=== PATIENT | female | born 1990 | race Caucasian/White ===

== ENCOUNTER 2016-12-18 16:27 | Observation (INO) ==
[2016-12-18 17:03] LABS: Basophils % 0.1 % (0.0-0.8); Eosinophils % 0.2 % (0.00-10.9); Hematocrit 37.9 VOL% (35.7-47.0); Hemoglobin 12.9 GM/DL (12.0-16.0); Immature Granulocytes % 0.6 %; Immature Granulocytes Absolute 0.09 #; Lymphocytes # 1.2 10*3/uL (1.4-4.0); Lymphocytes % 7.2 % (21.3-54.2); Mean Corpuscular Hemoglobin 30 PG (27-34); Mean Corpuscular Volume 87.7 FL (87-102); Mean Platelet Volume 11.1 FL (9.6-12.0); Monocytes # 0.4 10*3/uL (0.11-0.8); Monocytes % 2.4 % (1.7-12.7); Neutrophils # 14.4 10*3/uL (1.4-7.4); Neutrophils % 89.5 % (38.7-73.9); Platelet Count 269 T/CUMM (130-400); Red Blood Count 4.32 MC/CUMM (3.8-5.5); Red Cell Distribution Width 12.7 % (9.3-17.3)
[2016-12-18] MEDS: LACTATED RINGERS 1,000 ML IV SCH (17:15)
[2016-12-18] MEDS: ONDANSETRON 4 MG/2 ML VIAL IV PRN (17:16)
[2016-12-18] MEDS: MEPERIDINE 50 MG/1 ML VIAL IV SCH ×2 (17:20→23:29)
[2016-12-18] MEDS: LEVOFLOXACIN INJ 500 MG in PREMIX 1 EACH IV SCH (17:30)
[2016-12-18 18:16] LABS: Apearance,Urine Slightly Hazy (Clear); Bilirubin,Urine Negative (Negative); Blood, Urine Large mg/dL (Negative); Glucose,Urine (UA) Negative (Negative); Ketones,Urine 20 mg/dL (Negative); Mucus,Urine Few /LPF (Occasional); Nitrite,Urine Negative (Negative); Protein,Urine 30 MG/DL; RBC,Urine 815 /HPF (0-4); Squamous Epithelial Cell,Urine Occasional /HPF (0-10); Urine Color Yellow (Yellow); Urine Specific Gravity 1.016 (1.001-1.035); Urine Urobilinogen < 2.0 EU/DL (0.2-1.0); WBC,Urine 3 /HPF (0-6)
[2016-12-19] MEDS: LACTATED RINGERS 1,000 ML IV SCH ×3 (00:15→15:45)
[2016-12-19] MEDS: ONDANSETRON 4 MG/2 ML VIAL IV PRN (04:38)
[2016-12-19] MEDS: MEPERIDINE 50 MG/1 ML VIAL IV SCH ×2 (04:38→05:20)
[2016-12-19] MEDS ORDERED: MEPERIDINE 50 MG/1 ML VIAL IV PRN (07:10)
--- NOTE | 2016-12-19 07:58 | Ultrasound Report ---
Renal ultrasound. Indication: Kidney stones. No prior study. The right kidney measures 11.4 x 4.8 x 5.2 cm. The left kidney measures 11.3 x 4.9 x 4.5 cm. Arterial flow is documented to each kidney. No hydronephrosis is seen. No abnormal calcifications or cystic or solid masses are identified. The cortical thickness and parenchymal echogenicity is normal. Impression: No abnormality is seen. PROCEDURE INTERPRETED AT [facility] DEPARTMENT OF RADIOLOGY Final Report Signed by: Dr. Adriana Hopper
--- NOTE | 2016-12-19 08:02 | Ultrasound Report ---
OB ultrasound. First trimester. Indication:: Pelvic pain. No prior study. The uterus measures 15.6 x 8.2 x 10.8 cm and is anteverted. There is an intrauterine gestation. The baby is currently in a breech presentation. The placenta is located posterior. The placenta is low lying and will need to be followed to exclude placenta previa. movement was also seen at real-time. The organ systems were not evaluated on this study. Amniotic fluid volume is normal for this stage of . The cervix is closed with a length of 5.3 cm. There is an embryonic pole present, with cardiac activity seen at real-time. The heart rate is 163 bpm. Abdominal circumference-7.7 cm Femur length-1.2 cm [place]-rump length-7.9 cm. Gestational age by ultrasound, 14 weeks 1 day with an EDC of June 18, 2017. Growth percentile, 41.3%. The maternal ovaries present a normal appearance. Impression: Viable 14 week 1 day IUP. Low-lying placenta. This will need to be followed to exclude placenta previa. PROCEDURE INTERPRETED AT [facility] DEPARTMENT OF RADIOLOGY Final Report Signed by: Dr. Adriana Hopper
[2016-12-19] MEDS: LEVOFLOXACIN INJ 500 MG in PREMIX 1 EACH IV SCH (17:12)
[2016-12-19] MEDS ORDERED: methylPREDNISolone SOD SUC 40 MG/1 ML VIAL IV ONE (18:00)
[2016-12-19] MEDS ORDERED: diphenhydrAMINE CAP 25 MG CAPSULE PO PRN (18:00)
--- NOTE | 2016-12-19 18:01 | OB/GYN History & Physical ---
History of Present Illness Chief complaint: Nephrolithiasis, left-sided pelvic pain History of present illness: Ms. Hennessy is a 26 year old female Patient was admitted to the hospital for observation after being evaluated in the office with left-sided pelvic pain. Patient doubled over in excruciating discomfort. Ultrasound was obtained which demonstrated the possibility of kidney stones in the lower bladder and the distal ureter. No evidence of nephrolithiasis. In the kidney itself. This patient was admitted for IV hydration repeat pelvic ultrasound to be read by the radiologist. Also straight cath urinalysis as well as a CBC and a chemistry panel. Home Medications Medication Instructions Recorded Confirmed Type Vit 108/Iron/Folic AC 1 capsule PO DAILY 12/18/16 12/18/16 History [ One Tablet] Allergies Allergy/AdvReac Type Severity Reaction Status Date / Time Penicillins Allergy ANAPHYLAXIS Verified 01/17/16 00:22 Sulfa (Sulfonamide Allergy ANAPHYLAXIS Verified 01/17/16 00:22 Antibiotics) Medical,Surgical,& Family Hx - Medical History Genitourinary: History of: Kidney Stones - Family History Family History: Reports;: Family Cancer (grandmother), Family Diabetes (uncle grandfather), Family Heart Disease (grandfather), Family Hypertension (mom dad) - Social History Smoking Status: Never smoker Frequency of Alcohol Use: None Type of Drug Use: None 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 - Constitutional Vitals: Vital Signs Temp Pulse Resp BP Pulse Ox 12/19/16 16:00 98.7 F 79 20 114/68 100 12/19/16 11:38 97.7 F 70 20 114/71 98 12/19/16 08:00 97.7 F 87 20 124/69 99 12/19/16 06:00 18 12/19/16 04:00 98.1 F 94 H 18 111/62 100 12/19/16 02:00 18 12/19/16 00:00 99.0 F 84 20 119/65 100 12/18/16 20:00 97.9 F 94 H 20 118/66 100 General appearance: mild distress, severe distress - Head Head exam: Present: normal inspection - Eye Eye exam: Present: conjunctival injection Pupils: Present: CORNELIA - ENT ENT exam: Present: normal exam - Respiratory Respiratory exam: Present: clear to auscultation bilaterally - Breast Breasts: as per HPI Menstruation: as per HPI - Cardiovascular Cardiovascular exam: Present: regular rate and rhythm - GI/Abdominal GI/Abdominal exam: Present: normal bowel sounds (Positive heart tones), guarding (Positive heart tones) - Back Exam Back exam: Present: normal inspection - Psychiatric Psychiatric exam: Present: normal affect - Skin Skin exam: Present: normal color Assessment and Plan (1) Nephrolithiasis Status: Acute Assessment and plan: Received IV fluids, analgesic,'s Levaquin, will be discharged today in follow- up in our office in approximately her next scheduled appointment. Current Visit: Yes Results - Labs CBC & BMP: 12/18/16 16:49
--- NOTE | 2016-12-19 18:05 | Discharge Summary ---
Hospital Course - Hospital Course Hospital Course: Nephrolithiasis with an intrauterine , received IV antibiotics Levaquin , analgesic, and IV fluids. Patient is 100% better pain is described as being as 0 on a 10 point scale. No vaginal bleeding documented heart tones. This patient will be discharged and follow-up our office in her next scheduled appointment Diagnosis - Discharge Diagnosis (1) Nephrolithiasis Status: Acute Discharge Plan - Discharge Medications No Action Vit 108/Iron/Folic AC [ One Tablet] 1 capsule PO DAILY - Follow Up or Referral - Forms/Instructions Exam - Constitutional Vitals: Period Temp Pulse Resp BP Sys/[place] Pulse Ox Last 24 Hr 97.7 F-99.0 F 70-94 18-20 111-124/62-71 98-100 Discharge Results Procedures and tests throughout hospitalization: Pending Orders 12/20/16 04:00 US renal Bilateral IN AM Labs on day of discharge: Labs from last 24 hours 12/18/16 17:40 Urine Color Yellow Urine Appearance Slightly hazy Urine pH 6.0 Ur Specific [place] 1.016 Urine Protein 30 Urine Glucose (UA) Negative Urine Ketones 20 Urine Blood Large Urine Nitrate Negative Urine Bilirubin Negative Urine Urobilinogen < 2.0 H Urine Leukocytes Negative Urine RBC 815 Urine WBC 3 Ur Squamous Epith Cells Occasional Urine Mucus Few Ur Culture Indicated? Not indicated DS: Provider Date of admission: 12/18/16 16:27 Primary care physician: Rey Chanel MD Attending physician on admission: Rey Chanel MD Discharging clinician: Rey Chanel MD
[2016-12-19 21:31] VITALS: BP 120/76
== END 2016-12-19 20:35 | disposition home or self-care (01) ==
LOC: N.OB 16:27 → INTOOBSV 16:27
PROVIDERS: ADMIT Obstetrics & Gynecology; ATTEND Obstetrics & Gynecology

== ENCOUNTER 2017-06-14 06:05 | Inpatient (IN) ==
[2017-06-14] MEDS ORDERED: ONDANSETRON 4 MG/2 ML VIAL IV PRN ×2 (06:44→21:01)
[2017-06-14] MEDS ORDERED: MEPERIDINE 50 MG/1 ML VIAL IV PRN (06:44)
[2017-06-14] MEDS ORDERED: OXYTOCIN/LR 20 UNIT/1,000 ML BAG IV SCH (07:00)
[2017-06-14] MEDS ORDERED: LACTATED RINGERS 1,000 ML IV SCH (07:00)
[2017-06-14 07:09] LABS: Basophils % 0.3 % (0.0-0.8); Eosinophils # 0.2 10*3/uL (0.0-0.87); Eosinophils % 1.5 % (0.00-10.9); Hematocrit 37.2 VOL% (35.7-47.0); Hemoglobin 12.4 GM/DL (12.0-16.0); Immature Granulocytes % 1.4 %; Lymphocytes # 2.4 10*3/uL (1.4-4.0); Lymphocytes % 16.6 % (21.3-54.2); Mean Corpuscular HGB Conc 33.3 GM/DL (32-36); Mean Corpuscular Hemoglobin 29 PG (27-34); Mean Corpuscular Volume 85.5 FL (87-102); Mean Platelet Volume 11.9 FL (9.6-12.0); Monocytes # 0.8 10*3/uL (0.11-0.8); Monocytes % 5.1 % (1.7-12.7); Neutrophils % 75.1 % (38.7-73.9); Platelet Count 272 T/CUMM (130-400); Red Blood Count 4.35 MC/CUMM (3.8-5.5); Red Cell Distribution Width 13.9 % (9.3-17.3); White Blood Count 14.7 T/CUMM (4-12)
[2017-06-14 07:19] LABS: Albumin 2.9 G/DL (3.4-5.0); Bilirubin,Total 0.4 MG/DL (0.2-1.0); Calcium 9.4 MG/DL (8.5-10.1); Osmolality,Calculated 269.8 MOS/KG (273-304); Potassium 4.9 MMOL/L (3.5-5.1); Total Protein 6.7 G/DL (6.4-8.3)
[2017-06-14] MEDS ORDERED: ePHEDrine 50 MG/ML AMP IV PRN (08:58)
[2017-06-14] MEDS ORDERED: CITRIC ACID/SODIUM CITRATE 30 ML UDCUP PO ONE (08:58)
[2017-06-14] MEDS ORDERED: FAMOTIDINE 20 MG/2 ML VIAL IV ONE (08:58)
[2017-06-14] MEDS ORDERED: PROMETHAZINE 25 MG/1 ML VIAL IM ONE (08:58)
[2017-06-14] MEDS ORDERED: fentaNYL 2 MCG/ROPIV 0.2% EPID 150 ML EPIDURAL SCH (08:58)
[2017-06-14] MEDS ORDERED: diphenhydrAMINE 50 MG/1 ML VIAL IV PRN (08:58)
[2017-06-14] MEDS ORDERED: miSOPROStol 200 MCG TABLET ONE (09:13)
[2017-06-14] MEDS ORDERED: LIDOCAINE 1% 50 ML VIAL ONE (09:15)
[2017-06-14 15:38] LABS: Apearance,Urine CLEAR (Clear); Bilirubin,Urine Negative (Negative); Blood, Urine Negative (Negative); Glucose,Urine (UA) Negative (Negative); Ketones,Urine 20 mg/dL (Negative); Nitrite,Urine Negative (Negative); Protein,Urine Negative; RBC,Urine 1 /HPF (0-4); Squamous Epithelial Cell,Urine Occasional /HPF (0-10); Urine Color Straw (Yellow); Urine Specific Gravity 1.005 (1.001-1.035); Urine Urobilinogen < 2.0 EU/DL (0.2-1.0); WBC,Urine <1 /HPF (0-6)
[2017-06-14 21:00] LABS: Cord Arterial Blood HCO3 24.6 MMOL/L
[2017-06-14] MEDS ORDERED: oxyCODONE/ACETAMINOPHEN 5-325 MG TABLET PO PRN ×2 (21:01)
[2017-06-14] MEDS ORDERED: MEASLES/MUMPS/RUBELLA VACCINE 0.5 ML VIAL SUBCUT ONE (21:01)
[2017-06-14] MEDS ORDERED: DIPH/TET/ACEL PERT BOOSTER VACCINE 0.5 ML VIAL IM ONE (21:01)
[2017-06-14] MEDS ORDERED: RHO(D) IMMUNE GLOBULIN 300 MCG SYRINGE IM ONE (21:01)
[2017-06-14] MEDS ORDERED: WITCH HAZEL PADS 100/JAR TOP PRN (21:01)
[2017-06-14] MEDS ORDERED: HYDROCORTISONE 2.5% RECTAL CREAM 30 GM TUBE TOP PRN (21:01)
[2017-06-14] MEDS ORDERED: BENZOCAINE 20%/MENTHOL 0.5% SPRAY 56 GM CAN TOP PRN (21:01)
[2017-06-14] MEDS ORDERED: OXYTOCIN/LR 20 UNIT/1,000 ML BAG IV ONE (21:01)
[2017-06-14] MEDS ORDERED: LANOLIN 50% CREAM 0.3 OZ TUBE TOP PRN (21:01)
[2017-06-14] MEDS ORDERED: ACETAMINOPHEN 325 MG TABLET PO PRN (21:01)
[2017-06-14] MEDS ORDERED: BISACODYL 10 MG SUPP RECTAL PRN (21:01)
[2017-06-14 21:03] LABS: Cord Venous Blood HCO3 20.5 MMOL/L; Cord Venous Blood PO2 21.9 MMHG
[2017-06-14] MEDS: IBUPROFEN 800 MG TABLET PO PRN (23:39)
[2017-06-15 07:05] LABS: Basophils # 0.1 10*3/uL (0.0-0.2); Basophils % 0.3 % (0.0-0.8); Eosinophils # 0.4 10*3/uL (0.0-0.87); Eosinophils % 2.1 % (0.00-10.9); Hematocrit 31.3 VOL% (35.7-47.0); Hemoglobin 10.4 GM/DL (12.0-16.0); Immature Granulocytes % 0.9 %; Immature Granulocytes Absolute 0.17 #; Lymphocytes # 2.4 10*3/uL (1.4-4.0); Lymphocytes % 12.4 % (21.3-54.2); Mean Corpuscular HGB Conc 33.2 GM/DL (32-36); Mean Corpuscular Hemoglobin 29 PG (27-34); Mean Corpuscular Volume 85.8 FL (87-102); Mean Platelet Volume 11.8 FL (9.6-12.0); Monocytes # 1.3 10*3/uL (0.11-0.8); Monocytes % 6.8 % (1.7-12.7); Neutrophils # 15.1 10*3/uL (1.4-7.4); Neutrophils % 77.5 % (38.7-73.9); Platelet Count 263 T/CUMM (130-400); Red Blood Count 3.65 MC/CUMM (3.8-5.5); White Blood Count 19.5 T/CUMM (4-12)
[2017-06-15] MEDS: DOCUSATE SODIUM 100 MG CAPSULE PO SCH ×2 (09:28→21:53)
[2017-06-15] MEDS: IBUPROFEN 800 MG TABLET PO PRN ×2 (11:58→21:53)
[2017-06-15] MEDS: FERROUS SULFATE 325 MG TABLET PO SCH (21:53)
[2017-06-16] MEDS ORDERED: INFLUENZA VIRUS VACCINE 0.5 ML SYRINGE IM ONE (09:00)
[2017-06-16 09:17] VITALS: BP 112/68
[2017-06-16] MEDS: FERROUS SULFATE 325 MG TABLET PO SCH (10:22)
[2017-06-16] MEDS: DOCUSATE SODIUM 100 MG CAPSULE PO SCH (10:23)
[2017-06-16] MEDS: IBUPROFEN 800 MG TABLET PO PRN (10:25)
== END 2017-06-16 15:35 | disposition home or self-care (01) | DRG 775 ==
LOC: N.LDOUT 06:05 → N.LD 06:08 → N.OB 22:50
PROVIDERS: ADMIT Obstetrics & Gynecology; ATTEND Obstetrics & Gynecology

== ENCOUNTER 2019-10-28 16:05 | Inpatient (IN) ==
[2019-10-28] MEDS ORDERED: MEPERIDINE 50 MG/1 ML VIAL IV PRN (16:15)
[2019-10-28] MEDS ORDERED: ONDANSETRON 4 MG/2 ML VIAL IV PRN (16:15)
[2019-10-28] MEDS ORDERED: BUTORPHANOL 2 MG/ML VIAL IV PRN (16:15)
[2019-10-28] MEDS ORDERED: DINOPROSTONE VAG GEL 10 MG SYRINGE VAG ONE (16:18)
[2019-10-28 16:39] LABS: Basophils % 0.3 % (0.0-0.8); Eosinophils # 0.3 10*3/uL (0.0-0.87); Eosinophils % 1.6 % (0.00-10.9); Immature Granulocytes % 0.7 %; Immature Granulocytes Absolute 0.11 #; Lymphocytes # 2.7 10*3/uL (1.4-4.0); Lymphocytes % 17.4 % (21.3-54.2); Mean Corpuscular HGB Conc 32.5 GM/DL (32-36); Mean Corpuscular Volume 92.6 FL (87-102); Mean Platelet Volume 11.4 FL (9.6-12.0); Monocytes % 4.9 % (1.7-12.7); Neutrophils % 75.1 % (38.7-73.9); Platelet Count 257 T/CUMM (130-400); Red Blood Count 4.32 MC/CUMM (3.8-5.5); Red Cell Distribution Width 13.2 % (9.3-17.3); White Blood Count 15.4 T/CUMM (4-12)
[2019-10-29] MEDS: LACTATED RINGERS 1,000 ML IV SCH ×5 (01:55→11:39)
[2019-10-29] MEDS ORDERED: OXYTOCIN/LR 20 UNIT/1,000 ML BAG IV SCH (02:00)
[2019-10-29] MEDS ORDERED: FAMOTIDINE 20 MG/2 ML VIAL IV ONE ×2 (02:17→09:29)
[2019-10-29] MEDS ORDERED: NALOXONE 0.4 MG/ML VIAL IV PRN (02:17)
[2019-10-29] MEDS ORDERED: LACTATED RINGERS 250 ML IV PRN (02:17)
[2019-10-29] MEDS ORDERED: ePHEDrine 50 MG/ML AMP IV PRN (02:17)
[2019-10-29] MEDS ORDERED: CITRIC ACID/SODIUM CITRATE 30 ML UDCUP PO ONE ×2 (02:17→09:30)
[2019-10-29] MEDS ORDERED: fentaNYL 2 MCG/ROPIV 0.2% EPID 100 ML EPIDURAL SCH (02:30)
[2019-10-29] MEDS ORDERED: LACTATED RINGERS 1,000 ML IV SCH (02:30)
[2019-10-29] MEDS ORDERED: miSOPROStoL 200 MCG TABLET ONE (11:47)
[2019-10-29] MEDS ORDERED: TRANEXAMIC ACID 1,000 MG/10 ML VIAL ONE (11:47)
[2019-10-29] MEDS ORDERED: CARBOPROST TROMETHAMINE 250 MCG/ML AMP IM ONE (11:48)
[2019-10-29] MEDS ORDERED: METHYLERGONOVINE 0.2 MG/1 ML AMP ONE (11:48)
[2019-10-29 12:40] LABS: Cord Venous Blood HCO3 20.1 MMOL/L; Cord Venous Blood PCO2 38.8 MMHG; Cord Venous Blood PO2 34.1
[2019-10-29] MEDS ORDERED: BENZOCAINE 20%/MENTHOL 0.5% SPRAY 56 GM CAN TOP PRN (15:17)
[2019-10-29] MEDS ORDERED: DIPH/TET/ACEL PERT BOOSTER VACCINE 0.5 ML VIAL IM ONE (15:17)
[2019-10-29] MEDS ORDERED: BISACODYL 10 MG SUPP RECTAL PRN (15:17)
[2019-10-29] MEDS ORDERED: oxyCODONE/ACETAMINOPHEN 5-325 MG TABLET PO PRN ×2 (15:17)
[2019-10-29] MEDS ORDERED: LANOLIN 50% CREAM 0.3 OZ TUBE TOP PRN (15:17)
[2019-10-29] MEDS ORDERED: RHO(D) IMMUNE GLOBULIN 300 MCG SYRINGE IM ONE (15:17)
[2019-10-29] MEDS ORDERED: WITCH HAZEL PADS 100/JAR TOP PRN (15:17)
[2019-10-29] MEDS ORDERED: HYDROCORTISONE 2.5% RECTAL CREAM 30 GM TUBE TOP PRN (15:17)
[2019-10-29] MEDS ORDERED: ACETAMINOPHEN 325 MG TABLET PO PRN (15:17)
[2019-10-29] MEDS ORDERED: MEASLES/MUMPS/RUBELLA VACCINE 0.5 ML VIAL SUBCUT ONE (15:17)
[2019-10-29] MEDS ORDERED: OXYTOCIN/LR 20 UNIT/1,000 ML BAG IV ONE (15:17)
[2019-10-29] MEDS: IBUPROFEN 800 MG TABLET PO PRN (18:08)
[2019-10-29] MEDS: DOCUSATE SODIUM 100 MG CAPSULE PO SCH (21:09)
[2019-10-30] MEDS: IBUPROFEN 800 MG TABLET PO PRN ×4 (00:04→20:00)
[2019-10-30 06:45] LABS: Basophils # 0.1 10*3/uL (0.0-0.2); Basophils % 0.4 % (0.0-0.8); Eosinophils # 0.5 10*3/uL (0.0-0.87); Eosinophils % 3.5 % (0.00-10.9); Hematocrit 31.6 VOL% (35.7-47.0); Hemoglobin 10.4 GM/DL (12.0-16.0); Immature Granulocytes % 0.7 %; Lymphocytes # 2.6 10*3/uL (1.4-4.0); Lymphocytes % 19.3 % (21.3-54.2); Mean Corpuscular HGB Conc 32.9 GM/DL (32-36); Mean Corpuscular Volume 92.1 FL (87-102); Mean Platelet Volume 11.7 FL (9.6-12.0); Monocytes % 5.9 % (1.7-12.7); Neutrophils % 70.2 % (38.7-73.9); Platelet Count 205 T/CUMM (130-400); Red Blood Count 3.43 MC/CUMM (3.8-5.5); Red Cell Distribution Width 13.6 % (9.3-17.3); White Blood Count 13.6 T/CUMM (4-12)
[2019-10-30] MEDS: DOCUSATE SODIUM 100 MG CAPSULE PO SCH ×2 (08:27→20:00)
[2019-10-31] MEDS: IBUPROFEN 800 MG TABLET PO PRN (06:02)
[2019-10-31] MEDS: DOCUSATE SODIUM 100 MG CAPSULE PO SCH (08:20)
[2019-10-31 11:20] VITALS: BP 120/69
== END 2019-10-31 14:00 | disposition home or self-care (01) | DRG 807 ==
LOC: N.LDOUT 16:05 → N.LD 16:06 → N.OB 10-29 15:10
PROVIDERS: ADMIT Obstetrics & Gynecology; ATTEND Obstetrics & Gynecology